=== PATIENT | male | born 1980 | race American Indian/Alaskan Native ===

== ENCOUNTER 2020-02-29 13:19 | Emergency (ER) | payer SELFPAY | END 2020-02-29 13:20 | disposition left against medical advice (07) | LOC: ED 13:19 | DX: M79.674 Pain in right toe(s) (principal); Z53.21 Procedure and treatment not carried out due to patient leaving prior to being seen by health care provider ==

== ENCOUNTER 2020-02-29 23:53 | Emergency (ER) | payer SELFPAY ==
[2020-03-01 04:41] VITALS: BP 125/71
--- NOTE | 2020-03-01 05:02 | XRay Report ---
LEFT FOURTH TOE 3 VIEWS INDICATION / CLINICAL INFORMATION: Left fourth toe pain. COMPARISON: None available. FINDINGS: BONES / JOINT(S): There is no evidence of fracture, subluxation or destructive lesion. No significant arthritis. SOFT TISSUES: No significant abnormality. ADDITIONAL FINDINGS: None. Signer Name: Adán Haro MD Signed: 03/01/2020 4:58 AM Workstation Name: [email or web address]
--- NOTE | 2020-03-01 05:12 | Emergency Department Report ---
HPI - General Chief Complaint: Extremity Injury, Lower - HPI HPI: This is a 39-year-old male who presents to the emergency department with a complaint of some pain and a lesion to the outside of his left fourth toe. He bumped it on a door about 1 week ago and it has been getting progressively worse since. He has a past medical history of hypertension. He has not taken anything for symptoms prior to presentation. ED Past Medical Hx - Past Medical History Previous Medical History?: Yes Hx Hypertension: Yes Additional medical history: Fungal Toe Nails - Surgical History Past Surgical History?: No - Social History Smoking Status: Current Every Day Smoker Substance Use Type: None - Medications Home Medications: Home Medications Medication Instructions Recorded Confirmed Last Taken Type Ibuprofen [Motrin 800 MG tab] 800 mg PO Q8HR PRN #20 tablet 03/01/20 Unknown Rx Sulfamethoxazole/Trimethoprim 1 each PO BID #14 tablet 03/01/20 Unknown Rx [Bactrim DS TAB] ED Review of Systems ROS: Stated complaint: LEFT TOE INJURY Other details as noted in HPI Comment: All other systems reviewed and negative Constitutional: denies: chills, fever Musculoskeletal: arthralgia. denies: joint swelling Skin: lesions. denies: rash Neurological: denies: numbness, paresthesias Physical Exam - Physical Exam Vital Signs: Vital Signs 03/01/20 03/01/20 00:03 04:37 Temperature 98.2 F 98.0 F Pulse Rate 105 H 83 Respiratory 20 18 Rate Blood Pressure 132/78 125/71 O2 Sat by Pulse 97 95 Oximetry Physical Exam: GENERAL: The patient is well-developed well-nourished. HENT: Normocephalic. Atraumatic. Patient has moist mucous membranes. EYES: Extraocular motions are intact. NECK: Supple. Trachea is midline. SKIN: Skin is warm and dry. There is an ulceration and eschar to the lateral portion of the left fourth toe. Patient has significant onychomycosis. NEURO: The patient is awake, alert, and oriented. The patient is cooperative. The patient has no focal neurologic deficits. Normal speech. MUSCULOSKELETAL: There is some tenderness to palpation to the left fourth toe. There is no limitation range of motion. ED Course Vital Signs 03/01/20 03/01/20 00:03 04:37 Temperature 98.2 F 98.0 F Pulse Rate 105 H 83 Respiratory 20 18 Rate Blood Pressure 132/78 125/71 O2 Sat by Pulse 97 95 Oximetry ED Medical Decision Making - Radiology Data Radiology results: image reviewed interpreted by me: X-ray of the left fourth toe does not show any fracture, dislocation, signs of osteomyelitis, or any other acute process. - Medical Decision Making This patient presents with some pain to the left fourth toe after he hit it on a door about 1 week ago. Now he complains of some type of lesion or growth. On examination there appears to be some area of eschar and ulceration to the lateral portion of that left fourth toe. X-ray does not show any fracture, dislocation, signs of osteomyelitis. Patient will be placed on antibiotics and has been given referrals for podiatry. He will return to the ER with any worsening of his symptoms or any acute distress. Critical Care Time: No Critical care attestation.: If time is entered above; I have spent that time in minutes in the direct care of this critically ill patient, excluding procedure time. ED Disposition Clinical Impression: Toe pain, left Toe ulcer Qualifiers: Laterality: left Non-pressure ulcer stage: unspecified non-pressure ulcer stage Qualified Code(s): L97.529 - Non-pressure chronic ulcer of other part of left foot with unspecified severity Disposition: DC- TO HOME OR SELFCARE Is pt being admited?: No Condition: Stable Instructions: Arthralgia (ED) Additional Instructions: Please follow-up with a primary care physician. I have given you a referral for 2 different local podiatrists to follow-up regarding the pain in your toe, the toe ulcer, and your nail fungus. Take the antibiotics as prescribed. Return to the emergency department with any worsening of your symptoms or any acute distress. Prescriptions: Sulfamethoxazole/Trimethoprim [Bactrim DS TAB] 1 each PO BID #14 tablet Ibuprofen [Motrin 800 MG tab] 800 mg PO Q8HR PRN #20 tablet PRN Reason: Pain , Severe (7-10) Referrals: PRIMARY MD RENETTA [Primary Care Provider] - 3-5 Days LON BRANHAM DPM [Staff Physician] - 3-5 Days JOHN HEALY MD [Staff Physician] - 3-5 Days Forms: Work/School Release Form(ED) Time of Disposition: 05:11
== END 2020-03-01 05:18 | disposition home or self-care (01) ==
LOC: ED 23:53
DX: L97.529 Non-pressure chronic ulcer of other part of left foot with unspecified severity (principal); I10 Essential (primary) hypertension; F17.200 Nicotine dependence, unspecified, uncomplicated
CPT/HCPCS: 99283

== ENCOUNTER 2020-12-14 22:06 | Emergency (ER) | payer SELFPAY ==
[2020-12-14 22:36] VITALS: BP 118/77
[2020-12-15] MEDS ORDERED: ACETAMINOPHEN 500 MG TAB PO ONE (00:27)
[2020-12-15] MEDS ORDERED: IBUPROFEN 600 MG TAB PO ONE (00:27)
--- NOTE | 2020-12-15 01:01 | XRay Report ---
RIGHT FOOT 3 VIEWS INDICATION / CLINICAL INFORMATION: Pain - injury right great toe. COMPARISON: None available. FINDINGS: BONES / JOINT(S): The joint spaces are well-maintained. No significant arthritis. There is no evidenc e of fracture, subluxation or destructive lesion. SOFT TISSUES: No significant abnormality. ADDITIONAL FINDINGS: None. IMPRESSION: No acute abnormality. Signer Name: Adán Haro MD Signed: 12/15/2020 12:57 AM Workstation Name: [id number]
--- NOTE | 2020-12-15 01:58 | Emergency Department Report ---
ED Lower Extremity HPI - General Chief Complaint: Extremity Injury, Lower Stated Complaint: TOE ON RT FOOT PAIN Source: patient Mode of arrival: Ambulatory Limitations: No Limitations - History of Present Illness Initial Comments: Patient is a 40-year-old -[place] male with a history of hypertension who presents to the ED with complaint of acute onset persistent severe right foot and right great toe pain after he accidentally stumbled and stomped his foot against a piece of furniture at work over 12 hours ago. Patient states that the pain has been constant, severe and that he is unable to bear weight on the right foot because of worsening pain. Patient denies fall, dizziness, syncope, change in vision, nausea and vomiting, heavy lifting, numbness and tingling or weakness of right foot or low back pain. MD Complaint: foot injury (right foot pain, right great toe pain) -: Sudden, hour(s) (12) Injury: Foot: Right (right), Toes: Right (right great toe pain) Type of Injury: blunt Place: work Severity: severe Severity scale (0 -10): 8 Improves With: nothing Worsens With: weight bearing, movement, palpation Context: direct blow (stumped right foot against furniture at home) Associated Symptoms: swelling, able to partially bear weight. denies: numbness, tingling, unable to bear weight - Related Data Previous Rx's Medication Instructions Recorded Last Taken Type Ibuprofen [Motrin 800 MG tab] 800 mg PO Q8HR PRN #20 tablet 03/01/20 Unknown Rx Sulfamethoxazole/Trimethoprim 1 each PO BID #14 tablet 03/01/20 Unknown Rx [Bactrim DS TAB] Ibuprofen [Motrin] 800 mg PO Q8HR PRN #30 tablet 12/15/20 Unknown Rx traMADoL [Ultram] 50 mg PO Q6HR PRN #12 tablet 12/15/20 Unknown Rx Allergies Allergy/AdvReac Type Severity Reaction Status Date / Time cyclobenzaprine Allergy Hives Verified 03/01/20 00:18 [From Flexeril] ED Review of Systems ROS: Stated complaint: TOE ON RT FOOT PAIN Other details as noted in HPI Constitutional: denies: chills, fever Eyes: denies: eye pain, eye discharge, vision change ENT: denies: ear pain, throat pain Respiratory: denies: cough, shortness of breath, wheezing Cardiovascular: denies: chest pain, palpitations Endocrine: no symptoms reported Gastrointestinal: denies: abdominal pain, nausea, diarrhea Genitourinary: denies: urgency, dysuria Musculoskeletal: joint swelling (Great toe pain and swelling), arthralgia (Right foot pain; right great toe pain). denies: back pain Skin: denies: rash, lesions Neurological: denies: headache, weakness, paresthesias Psychiatric: denies: anxiety, depression Hematological/Lymphatic: denies: easy bleeding, easy bruising ED Past Medical Hx - Past Medical History Previous Medical History?: Yes Hx Hypertension: Yes Additional medical history: Fungal Toe Nails - Surgical History Past Surgical History?: Yes - Social History Smoking Status: Never Smoker Substance Use Type: None - Medications Home Medications: Home Medications Medication Instructions Recorded Confirmed Last Taken Type Ibuprofen [Motrin 800 MG tab] 800 mg PO Q8HR PRN #20 tablet 03/01/20 Unknown Rx Sulfamethoxazole/Trimethoprim 1 each PO BID #14 tablet 03/01/20 Unknown Rx [Bactrim DS TAB] Ibuprofen [Motrin] 800 mg PO Q8HR PRN #30 tablet 12/15/20 Unknown Rx traMADoL [Ultram] 50 mg PO Q6HR PRN #12 tablet 12/15/20 Unknown Rx ED Physical Exam - General Limitations: No Limitations General appearance: alert, in no apparent distress - Head Head exam: Present: atraumatic, normocephalic, normal inspection - Eye Eye exam: Present: normal appearance, PERRL, EOMI Pupils: Present: normal accommodation - ENT ENT exam: Present: normal exam, normal orophraynx, mucous membranes moist, TM's normal bilaterally, normal external ear exam - Neck Neck exam: Present: normal inspection, full ROM - Respiratory Respiratory exam: Present: normal lung sounds bilaterally. Absent: respiratory distress, wheezes, rales, rhonchi, chest wall tenderness, accessory muscle use, decreased breath sounds, prolonged expiratory - Cardiovascular Cardiovascular Exam: Present: regular rate, normal rhythm, normal heart sounds. Absent: systolic murmur, diastolic murmur, rubs, gallop - GI/Abdominal GI/Abdominal exam: Present: soft, normal bowel sounds. Absent: tenderness, guarding, hyperactive bowel sounds, hypoactive bowel sounds, organomegaly - Extremities Exam Extremities exam: Present: normal inspection, full ROM, tenderness (Palpable severe right foot and right great toe tenderness with mild swelling of the right great toe), normal capillary refill, joint swelling (Right great toe). Absent: calf tenderness - Back Exam Back exam: Present: normal inspection, full ROM. Absent: tenderness, CVA tenderness (R), muscle spasm, paraspinal tenderness, vertebral tenderness - Neurological Exam Neurological exam: Present: alert, oriented X3, CN II-XII intact, normal gait, reflexes normal - Psychiatric Psychiatric exam: Present: normal affect, normal mood - Skin Skin exam: Present: warm, dry, intact, normal color. Absent: rash ED Course Vital Signs 12/14/20 22:35 Temperature 98.7 F Pulse Rate 97 H Respiratory 17 Rate Blood Pressure 118/77 O2 Sat by Pulse 95 Oximetry ED Lower Extremity MDM - Radiology Data Radiology results: report reviewed, image reviewed [facility] [address] [place] [address] XRay Report Signed Patient: FERNANDEZ CANNON JR MR#: [id number] 43 : 1980 Acct:[id number] Age/Sex: 40 / M ADM Date: 12/14/20 Loc: ED Attending Dr: Ordering Physician: ADARSH ADLE Date of Service: 12/15/20 Procedure(s): XR foot 3+V RT Accession Number(s): [id number] cc: ADARSH DALE Fluoro Time In Minutes: RIGHT FOOT 3 VIEWS INDICATION / CLINICAL INFORMATION: Pain - injury right great toe. COMPARISON: None available. FINDINGS: BONES / JOINT(S): The joint spaces are well-maintained. No significant arthritis. There is no evidence of fracture, subluxation or destructive lesion. SOFT TISSUES: No significant abnormality. ADDITIONAL FINDINGS: None. IMPRESSION: No acute abnormality. Signer Name: Adán Haro MD Signed: 12/15/2020 12:57 AM Workstation Name: [id number] Transcribed By: RT Dictated By: Adán Haro MD Electronically Authenticated By: Adán Haro MD Signed Date/Time: 12/15/2056 DD/ TD/TT: - Medical Decision Making This is a 40-year-old -[place] male with a history of hypertension who presents to the ED with complaint of acute onset persistent severe right foot and right great toe pain after he accidentally stumbled and stomped his foot against a piece of furniture at work over 12 hours ago. Patient states that the pain has been constant, severe and that he is unable to bear weight on the right foot because of worsening pain. In the ED, patient is alert and oriented x3 and is not in distress but appears to be in pain. Patient was treated for pain in the ED and right foot x-ray showed no acute fractures or subluxations of the right foot or right great toe. Patient was therefore discharged home on pain medications and advised to follow-up with his primary care physician in 5 to 7 days for reevaluation or return to the ED immediately if symptoms get worse. - Differential Diagnosis Great toe fracture; foot fracture; foot contusion; Foot sprain; Toe sprain Critical care attestation.: If time is entered above; I have spent that time in minutes in the direct care of this critically ill patient, excluding procedure time. ED Disposition Clinical Impression: Contusion of right foot including toes Qualifiers: Encounter type: initial encounter Qualified Code(s): S90.31XA - Contusion of right foot, initial encounter Sprain of great toe of right foot Qualifiers: Encounter type: initial encounter Qualified Code(s): S93.501A - Unspecified sprain of right great toe, initial encounter Disposition: TO HOME OR SELFCARE Is pt being admited?: No Does the pt Need Aspirin: No Condition: Stable Instructions: Foot Contusion, [id number], Crush Injury of the Foot, [id number] Additional Instructions: The x-ray of your right foot showed no acute fractures or subluxations of the right foot or right great toe. Your injuries are due to right foot contusion and right great toe sprain. Therefore it take medications with food, drink plenty of fluids and follow-up with your primary care physician in 5 to 7 days for reevaluation. Return to the ED immediately if symptoms get worse. Prescriptions: Ibuprofen [Motrin] 800 mg PO Q8HR PRN #30 tablet PRN Reason: Pain , Severe (7-10) traMADoL [Ultram] 50 mg PO Q6HR PRN #12 tablet PRN Reason: Pain Referrals: [facility] [Provider Group] - 3-5 Days Forms: Work/School Release Form(ED) Time of Disposition: 02:01 Print Language: FAROESE
== END 2020-12-15 03:11 | disposition home or self-care (01) ==
LOC: ED 22:06
DX: S93.501A Unspecified sprain of right great toe, initial encounter (principal); S90.31XA Contusion of right foot, initial encounter; I10 Essential (primary) hypertension; Z88.8 Allergy status to other drugs, medicaments and biological substances; Z79.899 Other long term (current) drug therapy; W01.0XXA Fall on same level from slipping, tripping and stumbling without subsequent striking against object, initial encounter; Y93.89 Activity, other specified; Y92.89 Other specified places as the place of occurrence of the external cause; Y99.0 Civilian activity done for income or pay

== ENCOUNTER 2021-02-07 19:55 | Emergency (ER) | payer SELFPAY ==
[2021-02-07 20:00] VITALS: BP 132/78
[2021-02-07] MEDS ORDERED: ASPIRIN 325 MG TAB PO ONE (20:41)
[2021-02-07 21:13] LABS: Basophils # (Auto) 0.1 K/mm3 (0.0-0.1); Eosinophils # (Auto) 0.1 K/mm3 (0.0-0.4); Hemoglobin 16.8 gm/dl (11.8-15.2); Lymphocytes # (Auto) 1.7 K/mm3 (1.2-5.4); Lymphocytes % (Auto) 29.2 % (13.4-35.0); Mean Corpuscular HGB Conc 34 % (32-34); Mean Corpuscular Volume 91 fl (84-94); Monocytes # (Auto) 0.5 K/mm3 (0.0-0.8); Monocytes % (Auto) 8.4 % (0.0-7.3); Platelet Count 184 K/mm3 (140-440); Red Blood Count 5.47 M/mm3 (3.65-5.03); Red Cell Distribution Width 14.6 % (13.2-15.2)
[2021-02-07 21:23] LABS: Alanine Aminotransferase 20 units/L (7-56); Albumin 4.7 g/dL (3.9-5); BUN/Creatinine Ratio 9; Blood Urea Nitrogen 11 mg/dL (9-20); Calcium 9.7 mg/dL (8.4-10.2); Hemolysis Index 31
--- NOTE | 2021-02-13 09:38 | Electrocardiograph Report ---
[facility] Test Date: 2021-02-07 Test Time: 19:57:57 Pat Name: FERNANDEZ CANNON Department: Room: Gender: M [employer]: : 1980 Requested By: ED DOC Order Number: [id number] Reading MD: Braden Brown Measurements Intervals [place] Rate: 127 P: 71 NH: 166 QRS: 93 QRSD: 81 T: 24 QT: 301 QTc: 438 Interpretive Statements Sinus tachycardia Probable left atrial enlargement Consider anteroseptal infarct No previous ECG available for comparison Electronically Signed On 02-13-2021 9:38:02 EDT by Braden Brown
== END 2021-02-07 20:10 | disposition left against medical advice (07) ==
LOC: ED 19:55
DX: R07.9 Chest pain, unspecified (principal); Z53.21 Procedure and treatment not carried out due to patient leaving prior to being seen by health care provider
CPT/HCPCS: 36415; 80053; 84484; 85025; 93005

== ENCOUNTER 2021-08-10 02:00 | Emergency (ER) | payer SELFPAY ==
[2021-08-10 02:10] VITALS: BP 124/77
--- NOTE | 2021-08-10 02:44 | XRay Report ---
RIGHT HAND 4 VIEWS INDICATION / CLINICAL INFORMATION: Right hand injury. COMPARISON: None available. FINDINGS: BONES and JOINT(S): No acute fracture or subluxation. No significant arthritis. SOFT TISSUES: No significant abnormality. ADDITIONAL FINDINGS: None. IMPRESSION: 1. No acute findings. Signer Name: Tyrone Morales MD Signed: 08/10/2021 2:40 AM Workstation Name: [id number]
[2021-08-10] MEDS ORDERED: HYDROcodone/ACETAMINOPHEN 5-325 MG TAB PO STA (05:01)
--- NOTE | 2021-08-10 05:07 | Emergency Department Report ---
Upper Extremity - HPI Chief Complaint: Extremity Injury, Upper Stated Complaint: R HAND PAIN Time Seen by Provider: 08/10/21 04:55 Upper Extremity: Right Hand Occurred When: Today Mechanism: Hit with Object Severity: moderate Symptoms: Yes Pain with Movement, Yes Swelling, No Deformity, No Limited Range of Movement, No Bruising/Ecchymosis, No Laceration or Abrasion Other History: 41-year-old male was found reprimanded dog and when trying to place the dog the dog moved caused him to strike the wall resulting in pain and swelling to the right lateral aspect of his right hand which is worsens with palpation and range of motion. Pain is dull and throbbing in nature rates a 10 out of 10 with no numbness or tingling. ED Review of Systems ROS: Stated complaint: R HAND PAIN Other details as noted in HPI Comment: All other systems reviewed and negative ED Past Medical Hx - Past Medical History Previous Medical History?: No Hx Hypertension: Yes Additional medical history: Fungal Toe Nails - Surgical History Past Surgical History?: No - Social History Smoking Status: Never Smoker Substance Use Type: None - Medications Home Medications: Home Medications Medication Instructions Recorded Confirmed Last Taken Type Ibuprofen [Motrin 800 MG tab] 800 mg PO Q8HR PRN #20 tablet 03/01/20 Unknown Rx Sulfamethoxazole/Trimethoprim 1 each PO BID #14 tablet 03/01/20 Unknown Rx [Bactrim DS TAB] Ibuprofen [Motrin] 800 mg PO Q8HR PRN #30 tablet 12/15/20 Unknown Rx traMADoL [Ultram] 50 mg PO Q6HR PRN #12 tablet 12/15/20 Unknown Rx Ketorolac [Toradol] 10 mg PO Q6H PRN #14 tablet 08/10/21 Unknown Rx Upper Extremity Exam - Exam General: Vital signs noted. No distress. Alert and acting appropriately. Head and Torso: No HEENT Abnormality, No Neck Tenderness, No Chest/Lungs Abnormality, No Abdominal Tenderness, No Back Tenderness Shoulder Exam: Yes Normal Range of Motion in Shoulder, No Shoulder Tenderness, No Clavicle Tenderness, No Shoulder Deformity, No AC Joint Tenderness Arm Exam: No Arm/Humerus Tenderness, No Arm Deformity Elbow: No Elbow Tenderness, No Normal Range of Motion in Elbow, No Elbow Deformity Forearm: No Forearm Tenderness, No Forearm Deformity, No Pain with Pronation, No Pain with Supination Wrist: Yes Normal ROM in Wrist, No Wrist Tenderness, No Wrist Deformity, No Snuffbox Tenderness, No Pain with Axial Thumb Compression Hand: Yes Hand Tenderness (With swelling along the fifth metacarpal region no broken skin. 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 ED Disposition Clinical Impression: Contusion of hand, right Disposition: 01 HOME / SELF CARE / HOMELESS Is pt being admited?: No Does the pt Need Aspirin: No Condition: Fair Instructions: Contusion, Hand Contusion, How to Use Cold Therapy Prescriptions: Ketorolac [Toradol] 10 mg PO Q6H PRN #14 tablet PRN Reason: Pain Referrals: [facility] [Provider Group] - 3-5 Days
== END 2021-08-10 10:25 | disposition home or self-care (01) ==
LOC: ED 02:00
DX: S60.221A Contusion of right hand, initial encounter (principal); I10 Essential (primary) hypertension; W22.01XA Walked into wall, initial encounter; Y93.89 Activity, other specified; Y92.89 Other specified places as the place of occurrence of the external cause; Y99.8 Other external cause status
CPT/HCPCS: 99283

== ENCOUNTER 2021-09-12 16:23 | Emergency (ER) | payer SELFPAY ==
[2021-09-12 18:27] VITALS: BP 116/78
[2021-09-12] MEDS ORDERED: traMADol 50 MG TAB PO ONE (18:58)
--- NOTE | 2021-09-12 19:19 | Emergency Department Report ---
ED Extremity Problem HPI - General Chief complaint: Extremity Problem,Nontraumatic Stated complaint: LT KNEE SWELLING Time Seen by Provider: 09/12/21 18:47 Source: patient Mode of arrival: Ambulatory Limitations: No Limitations - History of Present Illness Initial comments: Patient is a 41-year-old male presents emergency room complaints of left knee pa in and swelling that began 4 days ago. Patient states he has had some discomfort in this knee in the past. He states he has had arthroscopy when he was younger in this left knee for cartilage removal. He states he used to play football and tore a ligament in his right knee. He states he has known arthritis in the right knee but is not sure about the left knee. He denies any fall or injury. He denies any fever, chills, vomiting, diarrhea, numbness, weakness. he states his pain is worse with movement. Patient states he stands on his feet all day. He denies any swelling down the leg or calf pain. Allergy to Tylenol with codeine and cyclobenzaprine. Severity scale (0 -10): 10 - Related Data Previous Rx's Medication Instructions Recorded Last Taken Type Ibuprofen [Motrin 800 MG tab] 800 mg PO Q8HR PRN #20 tablet 03/01/20 Unknown Rx Sulfamethoxazole/Trimethoprim 1 each PO BID #14 tablet 03/01/20 Unknown Rx [Bactrim DS TAB] Ibuprofen [Motrin] 800 mg PO Q8HR PRN #30 tablet 12/15/20 Unknown Rx traMADoL [Ultram] 50 mg PO Q6HR PRN #12 tablet 12/15/20 Unknown Rx Ketorolac [Toradol] 10 mg PO Q6H PRN #14 tablet 08/10/21 Unknown Rx Meloxicam [Mobic] 7.5 mg PO QDAY #20 tablet 09/12/21 Unknown Rx traMADoL [Ultram 50 MG tab] 50 mg PO Q6HR PRN #12 tablet 09/12/21 Unknown Rx Allergies Allergy/AdvReac Type Severity Reaction Status Date / Time acetaminophen Allergy Intermediate Hives Verified 09/12/21 18:23 [From Tylenol-Codeine #3] codeine Allergy Intermediate Hives Verified 09/12/21 18:23 [From Tylenol-Codeine #3] cyclobenzaprine Allergy Hives Verified 03/01/20 00:18 [From Flexeril] ED Review of Systems ROS: Stated complaint: LT KNEE SWELLING Other details as noted in HPI Comment: All other systems reviewed and negative ED Past Medical Hx - Past Medical History Hx Hypertension: Yes Additional medical history: Fungal Toe Nails - Social History Smoking Status: Never Smoker Substance Use Type: None - Medications Home Medications: Home Medications Medication Instructions Recorded Confirmed Last Taken Type Ibuprofen [Motrin 800 MG tab] 800 mg PO Q8HR PRN #20 tablet 03/01/20 Unknown Rx Sulfamethoxazole/Trimethoprim 1 each PO BID #14 tablet 03/01/20 Unknown Rx [Bactrim DS TAB] Ibuprofen [Motrin] 800 mg PO Q8HR PRN #30 tablet 12/15/20 Unknown Rx traMADoL [Ultram] 50 mg PO Q6HR PRN #12 tablet 12/15/20 Unknown Rx Ketorolac [Toradol] 10 mg PO Q6H PRN #14 tablet 08/10/21 Unknown Rx Meloxicam [Mobic] 7.5 mg PO QDAY #20 tablet 09/12/21 Unknown Rx traMADoL [Ultram 50 MG tab] 50 mg PO Q6HR PRN #12 tablet 09/12/21 Unknown Rx ED Physical Exam - General Limitations: No Limitations General appearance: alert, in no apparent distress - Head Head exam: Present: atraumatic, normocephalic - Eye Eye exam: Present: normal appearance - ENT ENT exam: Present: mucous membranes moist - Extremities Exam Extremities exam: Present: other (ttp and edema present to the left knee, pt has some decreased flexion secondary to pain, no erythema, no increased warmth, no deformity, no skin changes, neurovascularly intact) - Neurological Exam Neurological exam: Present: alert, oriented X3 - Psychiatric Psychiatric exam: Present: normal affect, normal mood - Skin Skin exam: Present: warm, dry, intact ED Course Vital Signs 09/12/21 18:25 Temperature 98.9 F Pulse Rate 84 Respiratory 16 Rate Blood Pressure 116/78 [Right] O2 Sat by Pulse 100 Oximetry ED Medical Decision Making - Lab Data Result diagrams: 09/12/21 19:21 09/12/21 19:21 Lab Results 09/12/21 09/12/21 Range/Units 19:21 19:21 WBC 8.0 (4.5-11.0) K/mm3 RBC 5.27 H (3.65-5.03) M/mm3 Hgb 15.8 H (11.8-15.2) gm/dl Hct 48.1 H (35.5-45.6) % MCV 91 (84-94) fl MCH 30 (28-32) pg MCHC 33 (32-34) % RDW 14.4 (13.2-15.2) % Plt Count 186 (140-440) K/mm3 Lymph % (Auto) 45.5 H (13.4-35.0) % [place] % (Auto) 8.2 H (0.0-7.3) % Eos % (Auto) 3.4 (0.0-4.3) % Baso % (Auto) 1.3 (0.0-1.8) % Lymph # (Auto) 3.7 (1.2-5.4) K/mm3 [place] # (Auto) 0.7 (0.0-0.8) K/mm3 Eos # (Auto) 0.3 (0.0-0.4) K/mm3 Baso # (Auto) 0.1 (0.0-0.1) K/mm3 Seg Neutrophils % 41.6 (40.0-70.0) % Seg Neutrophils # 3.3 (1.8-7.7) K/mm3 Sodium 141 (137-145) mmol/L Potassium 4.8 (3.6-5.0) mmol/L Chloride 103.8 (98-107) mmol/L Carbon Dioxide 26 (22-30) mmol/L Anion Gap 16 mmol/L BUN 11 (9-20) mg/dL Creatinine 1.0 (0.8-1.3) mg/dL Estimated GFR > 60 ml/min BUN/Creatinine Ratio 11 % Glucose 96 (75-100) mg/dL Uric Acid 4.3 (3.5-7.6) mg/dL Calcium 9.6 (8.4-10.2) mg/dL Total Bilirubin 0.30 (0.1-1.2) mg/dL AST 25 (5-40) units/L ALT 24 (7-56) units/L Alkaline Phosphatase 58 (35-129) units/L C-Reactive Protein 0.40 (0.00-1.30) mg/dL Total Protein 6.7 (6.3-8.2) g/dL Albumin 4.5 (3.9-5) g/dL Albumin/Globulin Ratio 2.0 % - Radiology Data Radiology results: report reviewed Ordering Physician: ADARSH STARK Date of Service: 09/12/21 Procedure(s): XR knee 3V LT Accession Number(s): [id number] cc: ADARSH STARK Fluoro Time In Minutes: LEFT KNEE 3 VIEWS INDICATION / CLINICAL INFORMATION: Left knee pain and swelling. No known injury. COMPARISON: None available. FINDINGS: BONES and JOINT(S): No acute fracture or subluxation. Mild tricompartmental osteoarthritis is noted with a suprapatellar joint effusion versus synovial proliferation. SOFT TISSUES: No significant abnormality. ADDITIONAL FINDINGS: None. IMPRESSION: 1. No acute findings. 2. Mild osteoarthritis. Signer Name: Tyrone Morales MD Signed: 09/12/2021 7:36 PM Workstation Name: [id number] Transcribed By: [place] Dictated By: Tyrone Morales MD Electronically Authenticated By: Tyrone Morales MD Signed Date/Time: 09/12/211935 DD/ 34 TD/TT: - Medical Decision Making Patient is a 41-year-old male presents emergency room complaints of left knee pain and swelling that began 4 days ago. Patient states he has had some discomfort in this knee in the past. He states he has had arthroscopy when he was younger in this left knee for cartilage removal. He states he used to play football and tore a ligament in his right knee. He states he has known arthritis in the right knee but is not sure about the left knee. He denies any fall or injury. He denies any fever, chills, vomiting, diarrhea, numbness, weakness. he states his pain is worse with movement. Patient states he stands on his feet all day. He denies any swelling down the leg or calf pain. Allergy to Tylenol with codeine and cyclobenzaprine. vitals are normal. on exam:ttp and edema present to the left knee, pt has some decreased flexion secondary to pain, no erythema, no increased warmth, no deformity, no skin changes, neurovascularly intact. XR left knee: 1. No acute findings. 2. Mild osteoarthritis. labs are normal. no leukocytosis. CRP is normal. pt evaluated at bedside by Dr Rafeedie ER attending and advised pt can follow up outpatient, does not suspect septic joint, advised against arthrocentesis. advised pt Please take medication as prescribed. May ice for 15 minutes at a time, rest, elevate the leg. Do not wear Derrick bandage too tightly and do not wear at night while sleeping. Follow-up with orthopedic doctor. Return to emergency room for any new or worsening symptoms. Critical care attestation.: If time is entered above; I have spent that time in minutes in the direct care of this critically ill patient, excluding procedure time. ED Disposition Clinical Impression: Swelling of left knee joint Left knee pain Qualifiers: Chronicity: acute Qualified Code(s): M25.562 - Pain in left knee Osteoarthritis Qualifiers: Osteoarthritis location: knee Osteoarthritis type: unspecified Laterality: left Qualified Code(s): M17.12 - Unilateral primary osteoarthritis, left knee Disposition: HOME / SELF CARE / HOMELESS Is pt being admited?: No Does the pt Need Aspirin: No Condition: Stable Instructions: Acute Knee Pain, Adult, Osteoarthritis Additional Instructions: Please take medication as prescribed. May ice for 15 minutes at a time, rest, elevate the leg. Do not wear Derrick bandage too tightly and do not wear at night while sleeping. Follow-up with orthopedic doctor. Return to emergency room for any new or worsening symptoms. Prescriptions: Meloxicam [Mobic] 7.5 mg PO QDAY #20 tablet traMADoL [Ultram 50 MG tab] 50 mg PO Q6HR PRN #12 tablet PRN Reason: Pain , Severe (7-10) Referrals: SOCRATES ROSARIO MD [Staff Physician] - 3-5 Days Time of Disposition: 20:12 Print Language: OCCITAN
[2021-09-12 19:38] LABS: Basophils # (Auto) 0.1 K/mm3 (0.0-0.1); Basophils % (Auto) 1.3 % (0.0-1.8); Eosinophils # (Auto) 0.3 K/mm3 (0.0-0.4); Eosinophils % (Auto) 3.4 % (0.0-4.3); Hematocrit 48.1 % (35.5-45.6); Hemoglobin 15.8 gm/dl (11.8-15.2); Lymphocytes # (Auto) 3.7 K/mm3 (1.2-5.4); Lymphocytes % (Auto) 45.5 % (13.4-35.0); Mean Corpuscular HGB Conc 33 % (32-34); Mean Corpuscular Volume 91 fl (84-94); Monocytes # (Auto) 0.7 K/mm3 (0.0-0.8); Monocytes % (Auto) 8.2 % (0.0-7.3); Platelet Count 186 K/mm3 (140-440); Red Blood Count 5.27 M/mm3 (3.65-5.03); Red Cell Distribution Width 14.4 % (13.2-15.2)
--- NOTE | 2021-09-12 19:40 | XRay Report ---
LEFT KNEE 3 VIEWS INDICATION / CLINICAL INFORMATION: Left knee pain and swelling. No known injury. COMPARISON: None available. FINDINGS: BONES and JOINT(S): No acute fracture or subluxation. Mild tricompartmental osteoarthritis is noted w ith a suprapatellar joint effusion versus synovial proliferation. SOFT TISSUES: No significant abnormality. ADDITIONAL FINDINGS: None. IMPRESSION: 1. No acute findings. 2. Mild osteoarthritis. Signer Name: Tyrone Morales MD Signed: 09/12/2021 7:36 PM Workstation Name: [id number]
[2021-09-12 20:00] LABS: Alanine Aminotransferase 24 units/L (7-56); Albumin 4.5 g/dL (3.9-5); BUN/Creatinine Ratio 11; Blood Urea Nitrogen 11 mg/dL (9-20); Calcium 9.6 mg/dL (8.4-10.2); Hemolysis Index 42; Uric Acid 4.3 mg/dL (3.5-7.6)
== END 2021-09-12 21:00 | disposition home or self-care (01) ==
LOC: ED 16:23
DX: M25.562 Pain in left knee (principal); M79.89 Other specified soft tissue disorders; I10 Essential (primary) hypertension
CPT/HCPCS: 36415; 80053; 84550; 85025; 86140; 99283

== ENCOUNTER 2021-11-20 00:30 | Emergency (ER) | payer SELFPAY ==
[2021-11-20 00:46] VITALS: BP 109/70
== END 2021-11-20 04:20 | disposition left against medical advice (07) ==
LOC: ED 00:30
DX: K08.89 Other specified disorders of teeth and supporting structures (principal); Z53.21 Procedure and treatment not carried out due to patient leaving prior to being seen by health care provider

== ENCOUNTER 2021-11-20 22:06 | Emergency (ER) | payer SELFPAY ==
[2021-11-20 22:15] VITALS: BP 148/92
--- NOTE | 2021-11-20 22:36 | Emergency Department Report ---
ED ENT HPI - General Chief complaint: Dental/Oral Stated complaint: TOOTHACHE Time Seen by Provider: 11/20/21 22:29 Source: patient Mode of arrival: Ambulatory Limitations: No Limitations - History of Present Illness Initial comments: 41-year-old male presents to the ER today with complaints of dental pain. Onset 1 week ago but is been getting worse. Location right upper jaw. He states that part of the tooth broke off recently and pain started to get worse and in the past 3 days he has been having swelling to his right upper jaw. He has been taking multiple doses of Tylenol to help his pain without much improvement. He currently does not have a dentist. He reports no fever, chills, difficulty swallowing, difficulty opening his jaw or drooling. He denies any facial redness or any additional symptoms at this time. MD complaint: tooth pain -: week(s) (1) - Related Data Previous Rx's Medication Instructions Recorded Last Taken Type Ibuprofen [Motrin 800 MG tab] 800 mg PO Q8HR PRN #20 tablet 03/01/20 Unknown Rx Sulfamethoxazole/Trimethoprim 1 each PO BID #14 tablet 03/01/20 Unknown Rx [Bactrim DS TAB] traMADoL [Ultram] 50 mg PO Q6HR PRN #12 tablet 12/15/20 Unknown Rx Ketorolac [Toradol] 10 mg PO Q6H PRN #14 tablet 08/10/21 Unknown Rx Meloxicam [Mobic] 7.5 mg PO QDAY #20 tablet 09/12/21 Unknown Rx Amoxicillin [Trimox CAP] 500 mg PO Q8H #30 capsule 11/20/21 Unknown Rx Ibuprofen [Motrin 800 MG tab] 800 mg PO Q8HR PRN #30 tablet 11/20/21 Unknown Rx traMADoL [Ultram 50 MG tab] 50 mg PO Q6HR PRN #12 tablet 11/20/21 Unknown Rx Allergies Allergy/AdvReac Type Severity Reaction Status Date / Time acetaminophen Allergy Intermediate Hives Verified 11/20/21 00:49 [From Tylenol-Codeine #3] codeine Allergy Intermediate Hives Verified 11/20/21 00:49 [From Tylenol-Codeine #3] cyclobenzaprine Allergy Hives Verified 11/20/21 00:49 [From Flexeril] pollen extracts Allergy Hives Verified 11/20/21 00:49 ED Dental HPI - General Chief complaint: Dental/Oral Stated complaint: TOOTHACHE Time Seen by Provider: 11/20/21 22:29 Source: patient Mode of arrival: Ambulatory Limitations: No Limitations - Related Data Previous Rx's Medication Instructions Recorded Last Taken Type Ibuprofen [Motrin 800 MG tab] 800 mg PO Q8HR PRN #20 tablet 03/01/20 Unknown Rx Sulfamethoxazole/Trimethoprim 1 each PO BID #14 tablet 03/01/20 Unknown Rx [Bactrim DS TAB] traMADoL [Ultram] 50 mg PO Q6HR PRN #12 tablet 12/15/20 Unknown Rx Ketorolac [Toradol] 10 mg PO Q6H PRN #14 tablet 08/10/21 Unknown Rx Meloxicam [Mobic] 7.5 mg PO QDAY #20 tablet 09/12/21 Unknown Rx Amoxicillin [Trimox CAP] 500 mg PO Q8H #30 capsule 11/20/21 Unknown Rx Ibuprofen [Motrin 800 MG tab] 800 mg PO Q8HR PRN #30 tablet 11/20/21 Unknown Rx traMADoL [Ultram 50 MG tab] 50 mg PO Q6HR PRN #12 tablet 11/20/21 Unknown Rx Allergies Allergy/AdvReac Type Severity Reaction Status Date / Time acetaminophen Allergy Intermediate Hives Verified 11/20/21 00:49 [From Tylenol-Codeine #3] codeine Allergy Intermediate Hives Verified 11/20/21 00:49 [From Tylenol-Codeine #3] cyclobenzaprine Allergy Hives Verified 11/20/21 00:49 [From Flexeril] pollen extracts Allergy Hives Verified 11/20/21 00:49 ED Review of Systems ROS: Stated complaint: TOOTHACHE Other details as noted in HPI Comment: All other systems reviewed and negative Constitutional: denies: chills, diaphoresis, fever, malaise, weakness Eyes: denies: eye pain, eye discharge, vision change ENT: dental pain Respiratory: denies: cough, shortness of breath, SOB with exertion, SOB at rest, wheezing Cardiovascular: denies: chest pain, palpitations, edema, syncope, paroxysmal nocturnal dyspnea Gastrointestinal: denies: abdominal pain, nausea, diarrhea, constipation, hematemesis, hematochezia Genitourinary: denies: urgency, dysuria, frequency, hematuria, discharge, testicular pain, testicular mass Musculoskeletal: denies: back pain, joint swelling, arthralgia Neurological: denies: headache, weakness, paresthesias Psychiatric: denies: anxiety, depression, auditory hallucinations, visual hallucinations, homicidal thoughts, suicidal thoughts Hematological/Lymphatic: denies: easy bleeding, easy bruising ED Past Medical Hx - Past Medical History Hx Hypertension: Yes Additional medical history: Fungal Toe Nails - Surgical History Additional Surgical History: knee surgery - Social History Smoking Status: Never Smoker Substance Use Type: None - Medications Home Medications: Home Medications Medication Instructions Recorded Confirmed Last Taken Type Ibuprofen [Motrin 800 MG tab] 800 mg PO Q8HR PRN #20 tablet 03/01/20 Unknown Rx Sulfamethoxazole/Trimethoprim 1 each PO BID #14 tablet 03/01/20 Unknown Rx [Bactrim DS TAB] traMADoL [Ultram] 50 mg PO Q6HR PRN #12 tablet 12/15/20 Unknown Rx Ketorolac [Toradol] 10 mg PO Q6H PRN #14 tablet 08/10/21 Unknown Rx Meloxicam [Mobic] 7.5 mg PO QDAY #20 tablet 09/12/21 Unknown Rx Amoxicillin [Trimox CAP] 500 mg PO Q8H #30 capsule 11/20/21 Unknown Rx Ibuprofen [Motrin 800 MG tab] 800 mg PO Q8HR PRN #30 tablet 11/20/21 Unknown Rx traMADoL [Ultram 50 MG tab] 50 mg PO Q6HR PRN #12 tablet 11/20/21 Unknown Rx ED Physical Exam - General Limitations: No Limitations General appearance: alert, in no apparent distress - Head Head exam: Present: atraumatic, normocephalic, normal inspection - Eye Eye exam: Present: normal appearance, PERRL, EOMI Pupils: Present: normal accommodation - ENT ENT exam: Present: mucous membranes moist - Expanded ENT Exam Expanded Mouth exam: Present: normal external inspection 1 - Dental Tenderness (moderate ttp with gum swelling), Other (mild swelling right cheek but no cellulitis) Throat exam: Positive: normal inspection - Neck Neck exam: Present: normal inspection, full ROM. Absent: meningismus - Respiratory Respiratory exam: Present: normal lung sounds bilaterally. Absent: respiratory distress, wheezes, rales, rhonchi, stridor - Cardiovascular Cardiovascular Exam: Present: regular rate, normal rhythm, normal heart sounds - Neurological Exam Neurological exam: Present: alert, oriented X3, CN II-XII intact - Psychiatric Psychiatric exam: Present: normal affect, normal mood - Skin Skin exam: Present: intact ED Course Vital Signs 11/20/21 22:10 Temperature 98.7 F Pulse Rate 88 Respiratory 18 Rate Blood Pressure 148/92 O2 Sat by Pulse 95 Oximetry Critical care attestation.: If time is entered above; I have spent that time in minutes in the direct care of this critically ill patient, excluding procedure time. ED Disposition Clinical Impression: Dental abscess Disposition: HOME / SELF CARE / HOMELESS Is pt being admited?: No Does the pt Need Aspirin: No Condition: Stable Instructions: Dental Abscess Additional Instructions: Take the medications as prescribed. You can do warm salt water rinses. Follow- up with the dentist. Return to the ER if your symptoms changes or worsens in any way. Prescriptions: Ibuprofen [Motrin 800 MG tab] 800 mg PO Q8HR PRN #30 tablet PRN Reason: Pain , Severe (7-10) Amoxicillin [Trimox CAP] 500 mg PO Q8H #30 capsule traMADoL [Ultram 50 MG tab] 50 mg PO Q6HR PRN #12 tablet PRN Reason: Pain , Severe (7-10) Referrals: PRIMARY CARE, [Referring] - 3-5 Days Time of Disposition: 22:37
[2021-11-20] MEDS ORDERED: traMADol 50 MG TAB PO ONE (22:38)
[2021-11-20] MEDS ORDERED: AMOXICILLIN 500 MG CAP PO ONE (22:38)
[2021-11-20] MEDS ORDERED: IBUPROFEN 600 MG TAB PO ONE (22:38)
== END 2021-11-20 22:48 | disposition home or self-care (01) ==
LOC: ED 22:06
DX: K04.7 Periapical abscess without sinus (principal); I10 Essential (primary) hypertension; Z88.6 Allergy status to analgesic agent; Z88.8 Allergy status to other drugs, medicaments and biological substances
CPT/HCPCS: 99282